=== PATIENT | male | born 1955 | race Caucasian/White ===

== ENCOUNTER 2022-05-08 06:17 | Day surgery (SDC) | payer OTHER ==
[2022-05-06 09:43] LABS: Urine WBC None Seen /hpf (0 - 3)
[2022-05-06 09:49] LABS: Basophils # (auto) 0 10 ^3/uL (0-0.2); Basophils % (auto) 0.5 % (0.0-2.0); Eosinophils # (auto) 0.1 10 ^3/uL (0-0.8); Eosinophils % (auto) 1.1 % (0.0-7.0); Hematocrit 46.3 % (41.0-53.0); Hemoglobin 15.7 g/dL (13.5-17.5); Lymphocytes # (auto) 2.3 10 ^3/uL (0.4-5.4); Lymphocytes % (auto) 25.4 % (10.0-50.0); Mean Corpuscular Hemoglobin 32.3 pg (28.0-32.0); Monocytes % (auto) 11.3 % (0.0-12.0); Neutrophils # (auto) 5.6 10 ^3/uL (1.6-8.6); Neutrophils % (auto) 61.7 % (37.0-80.0); Nucleated Red Blood Cells % 0.6 %; Red Blood Cells 4.88 10^6/uL (4.5-5.90); Red Cell Distribution Width 14.2 % (11.8-14.3)
[2022-05-06 10:01] LABS: Urine Bacteria NONE SEEN /hpf (None Seen); Urine Blood Negative /uL (Negative); Urine Specific Gravity 1.016 (1.001-1.035)
[2022-05-06 10:28] LABS: Albumin 3.9 g/dL (3.4-5.0); BUN/Creatinine Ratio 26.1 (10.0-20.0); Bilirubin, Total 0.8 mg/dL (0.2-1.0); Calcium 9.3 mg/dL (8.5-10.1); Total Protein 7.5 g/dL (6.4-8.2)
[2022-05-06 11:18] LABS: INR 0.98 (0.9-1.15); Partial Thromboplastin Time 33.2 sec (24.6-33.4)
[2022-05-06 11:45] LABS: Potassium 4.8 mmol/L (3.5-5.1)
[~2022-05-08] VITALS: Ht 167.6 cm; Wt 93.0 kg
[~2022-05-08 06:17] MED LIST: ASPI-498 OR; FURO20TA3 PO; GABA100C9 PO; LISI-275 PO; METF500S PO; METO25TA93 PO; SIMV-8 PO
[2022-05-08] MEDS ORDERED: ceFAZolin 1GM/50ML 100 ML IV ONE (06:34)
[2022-05-08] MEDS ORDERED: SUCCINYLCHOLINE CHLORIDE 20 MG/ML 10ML VIAL IV ONE (06:57)
[2022-05-08] MEDS ORDERED: ROCURONIUM 10MG/ML 10ML VIAL IV ONE (06:57)
[2022-05-08] MEDS ORDERED: LIDOCAINE W/ EPINEPHRINE 1% 20ML VIAL ONE (07:03)
[2022-05-08] MEDS ORDERED: BUPIVACAINE 0.25% INJ 50ML VIAL ONE (07:04)
[2022-05-08] MEDS ORDERED: LIDOCAINE HCL (LOCAL ANESTH.) 0.5 % 50ML MDV IJ ONE (07:04)
[2022-05-08] MEDS ORDERED: ROPIVACAINE 0.5% (5MG/ML) 20ML AMPULE IJ ONE (07:04)
[2022-05-08] MEDS ORDERED: ONDANSETRON HCL 4 MG/2 ML VIAL ONE (07:18)
[2022-05-08] MEDS ORDERED: MIDAZOLAM HCL 2MG/2ML 2ml VIAL (1mg/ml) ONE (07:18)
[2022-05-08] MEDS ORDERED: fentaNYL CITRATE 100 MCG/2 ML VL ONE (07:18)
[2022-05-08] MEDS ORDERED: PROPOFOL 10 MG/ML 20 ML IV ONE (07:18)
[2022-05-08] MEDS ORDERED: SODIUM CHLORIDE LOCK 10 ML ONE (07:18)
[2022-05-08] MEDS ORDERED: MORPHINE SULFATE INJ 2 MG/ml SYRG IV PRN (07:30)
[2022-05-08] MEDS ORDERED: ACCU-CHEK COMFORT CURVE STRIP VI ONE (07:30)
[2022-05-08] MEDS ORDERED: HYDROmorphone HCL 2 MG/ML VL/or syr IV PRN ×2 (07:30)
[2022-05-08] MEDS ORDERED: METOCLOPRAMIDE HCL 5MG/ml INJ 2ml VIAL IV PRN (07:30)
[2022-05-08] MEDS ORDERED: LIDOCAINE 1% (LOCAL ANESTH.) PF 5ml SDV ONE (07:37)
[2022-05-08] MEDS ORDERED: BUPIVACAINE HCL 50 ML ONE (07:37)
[2022-05-08 09:32] VITALS: BP 101/62
== END 2022-05-08 10:01 | disposition home or self-care (01) ==
LOC: SUR 06:17
PROVIDERS: ATTEND Orthopaedic Surgery
DX: G56.21 Lesion of ulnar nerve, right upper limb (principal); G56.01 Carpal tunnel syndrome, right upper limb; E11.9 Type 2 diabetes mellitus without complications; I10 Essential (primary) hypertension; Z95.0 Presence of cardiac pacemaker; I25.2 Old myocardial infarction; Z79.899 Other long term (current) drug therapy; Z79.84 Long term (current) use of oral hypoglycemic drugs; Z20.822 Contact with and (suspected) exposure to COVID-19; Z98.890 Other specified postprocedural states
CPT/HCPCS: 36415; 64718; 64721; 80053; 81001; 82962; 85025; 85610; 85730; J0330; J0690; J2250; J2405; J2704; J3010; J3490; U0003

== ENCOUNTER → 2022-07-09 | Day surgery (SDC) | payer OTHER ==
[2022-07-04 10:18] LABS: Urine WBC None Seen /hpf (0 - 3)
[2022-07-04 10:21] LABS: Basophils # (auto) 0.1 10 ^3/uL (0-0.2); Basophils % (auto) 0.6 % (0.0-2.0); Eosinophils # (auto) 0.1 10 ^3/uL (0-0.8); Hematocrit 44.4 % (41.0-53.0); Hemoglobin 15.3 g/dL (13.5-17.5); Lymphocytes % (auto) 24.1 % (10.0-50.0); Mean Corpuscular Hgb Conc. 34.5 g/dL (32.0-36.0); Mean Corpuscular Volume 95.8 fL (80.0-100.0); Monocytes # (auto) 0.8 10 ^3/uL (0-1.3); Monocytes % (auto) 9.3 % (0.0-12.0); Neutrophils # (auto) 5.5 10 ^3/uL (1.6-8.6); Nucleated Red Blood Cells % 0.1 %; Red Blood Cells 4.64 10^6/uL (4.5-5.90); White Blood Cell 8.5 10^3/uL (4.4-10.8)
[2022-07-04 10:28] LABS: Urine Bacteria NONE SEEN /hpf (None Seen); Urine Blood Negative /uL (Negative); Urine Specific Gravity 1.023 (1.001-1.035)
[2022-07-04 10:58] LABS: Albumin 4.1 g/dL (3.4-5.0); Calcium 8.7 mg/dL (8.5-10.1); Potassium 4.6 mmol/L (3.5-5.1)
[2022-07-04 11:06] LABS: BUN/Creatinine Ratio 22.3 (10.0-20.0); Bilirubin, Total 0.7 mg/dL (0.2-1.0); Total Protein 7.4 g/dL (6.4-8.2)
[2022-07-04 12:31] LABS: INR 0.97 (0.9-1.15); Partial Thromboplastin Time 32.4 sec (24.6-33.4)
[~2022-07-09] VITALS: Ht 167.6 cm; Wt 90.3 kg
[~2022-07-09] MED LIST changes: +ASCO500T11 PO; +BUPIVACAINE 0.5% P/F INJ 10 ML VIAL ONE; +CALC600T65 OR; +CHOL1TAB28 PO; +COEN150C4 PO; +DexAMETHasone SOD PHOS 10MG/1ML VIAL INJ ONE; +FUR20T PO; -FURO20TA3 PO; +GABA-1250 PO; -GABA100C9 PO; +HYDROmorphone HCL 2 MG/ML VL/or syr IV PRN; +LABETALOL HCL 5 MG/ML 4ML SYRINGE IV PRN; +LIDOCAINE 2%HCL (LOCAL ANESTH.) INJ 10ml MDV ONE; -LISI-275 PO; +LISI20TA56 PO; +MEPERIDINE HCL (25 MG/ML) 1ML VIAL ONE; +METF-371 PO; -METF500S PO; +MIDAZOLAM HCL 2MG/2ML 2ml VIAL (1mg/ml) IV PRN; +MIDAZOLAM HCL 2MG/2ML 2ml VIAL (1mg/ml) ONE; +MORPHINE SULFATE 4 MG/ML SYR/VIAL IV PRN; +MULT-1018 OR; +OMEG-20 PO; +ONDANSETRON HCL 4 MG/2 ML VIAL IV PRN; +PROPOFOL 10 MG/ML 20 ML IV ONE; -SIMV-8 PO; +SIMV80TA17 PO; +SPIR25TA8 PO; +SUCCINYLCHOLINE CHLORIDE 20 MG/ML 10ML VIAL IV ONE; +ceFAZolin 1GM/50ML 100 ML IV ONE; +ePHEDrine SULFATE 50 MG/ML AMP IV PRN; +fentaNYL CITRATE 100 MCG/2 ML VL ONE
[2022-07-09 09:30] VITALS: BP 126/53
== END | disposition home or self-care (01) ==
LOC: SUR 06:11
PROVIDERS: ATTEND Orthopaedic Surgery
DX: G56.02 Carpal tunnel syndrome, left upper limb (principal); G56.22 Lesion of ulnar nerve, left upper limb; E11.9 Type 2 diabetes mellitus without complications
CPT/HCPCS: 36415; 64718; 64721; 80053; 81001; 82962; 85025; 85610; 85730; J0330; J0690; J1100; J2001; J2175; J2250; J2704; J3010; J3490